=== PATIENT | male | born 1990 | race Caucasian/White ===

== ENCOUNTER 2017-09-29 17:07 | Emergency (ER) | payer SELFPAY ==
[~2017-09-29] VITALS: Ht 170.1 cm; Wt 52.2 kg
[~2017-09-29 17:07] MED LIST: ADDERALL XR25 MG PO; ADDERALL20 MG PO; FIORICET 325 MG1 TAB PO; MOTRIN800 MG PO; PERCOCET 325 MG1 TA7 PO; Percocet 325 MG1 TAB PO; SINGULAIR10 MG PO
== END 2017-09-29 17:54 | disposition left against medical advice (07) ==
LOC: ED 17:07
DX: Z02.1 Encounter for pre-employment examination (principal); Z79.899 Other long term (current) drug therapy